=== PATIENT | female | born 2000 | race African-American/Black ===

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

== ENCOUNTER 2020-09-19 01:56 | Emergency (ER) | payer OTHER ==
[2020-09-19] MEDS ORDERED: Boostrix 0.5 ML (Tdap) VIAL ONE (02:30)
[2020-09-19] MEDS ORDERED: Ibuprofen 800 MG TAB ONE (02:30)
[2020-09-19] MEDS ORDERED: Lidocaine 1% w/Epinephrine 1:100K 20 ML VIAL ONE (02:35)
[2020-09-19] MEDS ORDERED: Triple Antibiotic Oint 1 GM Packet ONE (03:44)
== END 2020-09-19 03:55 | disposition home or self-care (01) ==
LOC: ERS 01:56
DX: S01.81XA Laceration without foreign body of other part of head, initial encounter (principal); W22.8XXA Striking against or struck by other objects, initial encounter; Z23 Encounter for immunization
CPT/HCPCS: 12014; 70450; 90471; 90715

== ENCOUNTER 2020-09-28 07:39 | Emergency (ER) | payer OTHER | END 2020-09-28 09:03 | disposition home or self-care (01) | LOC: ERS 07:39 | DX: S01.81XD Laceration without foreign body of other part of head, subsequent encounter (principal) ==

== ENCOUNTER 2020-12-29 22:24 | Emergency (ER) | payer OTHER ==
[2020-12-29 23:07] LABS: Bilirubin Negative (Negative); Blood, Urine 2+ (Negative); Glucose, Urine (Dipstick) Normal (Negative); Ketone, Urine Trace mg/dL (Negative); Leukocyte 500 Leu/uL (Negative); Nitrite Negative (Negative); Protein, Urine (Dipstick) 70 mg/dL (Neg-Trace); RBC/HPF 21-50 HPF (0-3); Specific Gravity, Urine 1.029 (1.002-1.036); Squamous Epithelial None Seen HPF (0-3); Urobilinogen 3 mg/dL (Less than 2); WBC/HPF Greater than 50 HPF (0-3)
[2020-12-29 23:10] LABS: Bacteria/HPF 1+ HPF (None Seen); Clarity Cloudy (Clear)
[2020-12-29 23:11] LABS: Pregnancy Test - Urine (BHCG) Negative (Negative); Pregu Control Background? CLEAR/WHITE (CLR/WHITE); Pregu Control Bar Appear? YES (CONTROL BAR); Specific Gravity 1.029 (1.002-1.036)
== END 2020-12-30 00:50 | disposition home or self-care (01) ==
LOC: ERS 22:24
DX: N39.0 Urinary tract infection, site not specified (principal)
CPT/HCPCS: 81003; 81015; 81025; 87077; 87086; 87186; 99283

== ENCOUNTER 2021-04-16 16:52 | Emergency (ER) | payer OTHER | END 2021-04-16 19:10 | disposition left against medical advice (07) | LOC: ERS 16:52 | DX: Z53.21 Procedure and treatment not carried out due to patient leaving prior to being seen by health care provider (principal) ==

== ENCOUNTER 2022-06-14 21:05 | Emergency (ER) | payer OTHER | END 2022-06-14 23:17 | disposition left against medical advice (07) | LOC: ERS 21:05 | DX: Z53.21 Procedure and treatment not carried out due to patient leaving prior to being seen by health care provider (principal) ==

== ENCOUNTER 2023-02-08 19:52 | Emergency (ER) | payer BC, OTHER ==
[2023-02-08 21:17] LABS: SARS-CoV-2 NAA Rapid Test DETECTED (NotDetected)
== END 2023-02-08 21:23 | disposition home or self-care (01) ==
LOC: ERS 19:52
DX: J06.9 Acute upper respiratory infection, unspecified (principal); Z20.822 Contact with and (suspected) exposure to COVID-19
CPT/HCPCS: 99283

== ENCOUNTER 2023-10-12 02:06 | Emergency (ER) | payer BC ==
[2023-10-12] MEDS ORDERED: medroxyPROGESTERone Acetate 5 MG TAB PO SCH (03:30)
[2023-10-12 03:58] LABS: Bacteria/HPF None Seen HPF (None Seen); Bilirubin Negative (Negative); Blood, Urine Negative (Negative); CAUTI Indications for Culture Dysuria,urgency,freq; Clarity Clear (Clear); Glucose, Urine (Dipstick) Normal (Negative); Ketone, Urine Negative (Negative); Leukocyte Negative Leu/uL (Negative); Nitrite Negative (Negative); Protein, Urine (Dipstick) 10 mg/dL (Neg-Trace); RBC/HPF 0-3 HPF (0-3); Specific Gravity, Urine 1.029 (1.002-1.036); Squamous Epithelial 0-3 HPF (0-3); Urobilinogen 3 mg/dL (Less than 2); WBC/HPF 0-3 HPF (0-3)
[2023-10-12 04:06] LABS: Pregnancy Test - Urine (BHCG) Negative (Negative); Pregu Control Background? CLEAR/WHITE (CLR/WHITE); Pregu Control Bar Appear? YES (CONTROL BAR); Specific Gravity 1.029 (1.002-1.036)
[2023-10-12 04:07] LABS: Urine Culture Reflex No No
== END 2023-10-12 04:15 | disposition home or self-care (01) ==
LOC: ERS 02:06
DX: N93.9 Abnormal uterine and vaginal bleeding, unspecified (principal)
CPT/HCPCS: 81001; 81025; 99284

== ENCOUNTER → 2024-02-10 | Emergency (ER) | payer BC, OTHER ==
[~2024-02-10] MED LIST: Sterile Water 10 ML ONE; cefTRIAXone (ROCEPHIN) 500 MG VIAL ONE
[2024-02-10 19:55] LABS: Pregnancy Test - Urine (BHCG) Negative (Negative); Pregu Control Background? CLEAR/WHITE (CLR/WHITE); Pregu Control Bar Appear? YES (CONTROL BAR); Specific Gravity 1.018 (1.002-1.036)
[2024-02-10 19:59] LABS: Bacteria/HPF None Seen HPF (None Seen); Bilirubin Negative (Negative); Blood, Urine 2+ (Negative); CAUTI Indications for Culture Pelvic or flank pain; Clarity Clear (Clear); Glucose, Urine (Dipstick) Normal (Negative); Ketone, Urine Negative (Negative); Leukocyte Negative Leu/uL (Negative); Nitrite Negative (Negative); Protein, Urine (Dipstick) Negative (Neg-Trace); Specific Gravity, Urine 1.018 (1.002-1.036); Squamous Epithelial 0-3 HPF (0-3); Urobilinogen Normal mg/dL (Less than 2)
[2024-02-10 20:01] LABS: Urine Culture Reflex No No
[2024-02-11 13:57] LABS: Chlamydia by PCR, Vaginal Swab Not Detected (NotDetected); GC by PCR, Vaginal Swab Not Detected (NotDetected)
== END ==
LOC: ERS 19:03
DX: R30.0 Dysuria (principal)
CPT/HCPCS: 81001; 81025; 87480; 87491; 87510; 87591; 87660; 96372; 99283; J0696